=== PATIENT | female | born 1950 | race African-American/Black ===

== ENCOUNTER 2016-03-22 08:35 | Day surgery (SDC) | payer MEDICARE, OTHER ==
[2016-03-15 11:59] LABS: BASOPHILS 0.2 %; BASOPHILS ABSOLUTE 0.01 10/3/uL (0.0-0.16); EOSINOPHILS 1.5 %; EOSINOPHILS ABSOLUTE 0.08 10/3/uL (0.0-0.53); HEMATOCRIT 40.5 % (36.0-48.0); HEMOGLOBIN 12.2 g/dL (12.0-16.0); IMMATURE GRANULOCYTES 0.2 %; IMMATURE GRANULOCYTES ABSOLUTE 0.01 10/3/uL (0.0-0.11); LYMPHOCYTES 27.5 %; LYMPHOCYTES ABSOLUTE 1.47 10/3/uL (0.67-4.30); MEAN CORPUS HGB CONC 30.1 g/dL (32.0-36.0); MEAN CORPUSCULAR HEMOGLOB 25.1 pg (26.0-34.0); MEAN PLATELET VOLUME 11.8 fL (9.2-13.0); MONOCYTES 7.7 %; MONOCYTES ABSOLUTE 0.41 10/3/uL (0.21-1.20); NEUTROPHILS 62.9 %; NEUTROPHILS ABSOLUTE 3.37 10/3/uL (2.02-8.40); PLATELET COUNT 240 10/3/uL (150-400); RBC DISTRIBUTION WIDTH 16.4 % (12.0-16.0); RED CELL COUNT 4.86 10/6/uL (4.0-5.6); WHITE BLOOD CELLS 5.4 10/3/uL (4.5-10.5)
[2016-03-15 12:00] LABS: MANUAL DIFF NO %; MEAN CORPUSCULAR VOLUME 83.3 fL (80-100)
[2016-03-15 12:21] LABS: A/G RATIO 0.9 (0.7-1.9); ALBUMIN 3.6 G/DL (3.5-5.0); BUN (BLOOD UREA NITROGEN) 15 MG/DL (6-23); CALCIUM, SERUM 9.2 MG/DL (8.5-10.4); CHLORIDE, SERUM 95 MMOL/L (96-112); CO2 (CARBON DIOXIDE) 35 MMOL/L (24-34); CREATININE 0.78 MG/DL (0.55-1.02); GFR AFRICAN AMERICAN 91 ML/MIN (>=60); GFR NON AFRICAN AMERICAN 79 ML/MIN (>=60); POTASSIUM, SERUM 3.6 MMOL/L (3.5-5.3); SGOT(AST) 14 U/L (5-40); SGPT(ALT) 14 U/L (5-65); SODIUM, SERUM 139 MMOL/L (135-148); TOTAL BILIRUBIN 0.6 MG/DL (0-1.2); TOTAL PROTEIN 7.6 G/DL (6.0-8.5)
[2016-03-15 12:23] LABS: ALKALINE PHOSPHATASE 132 U/L (45-117); GLUCOSE, SERUM 104 MG/DL (60-99)
--- NOTE | ~2016-03-22 | OP ---
Record Of Operation [facility] [address] [place]. [address] NAME: LUIS TAMEZ : 48 STATUS : REG [facility]#: [id number] AGE: 66 ADM/REG DATE : 03/22/16 MR#: [id number] REPORT SERV DATE: 03/22/16 DICTATED BY: NERIS MONTOYA DATE: 03/22/16 REPORT STATUS : Draft TRANSCRIBED BY: MODGalileo DATE: 03/22/16 DATE OF PROCEDURE: PREOPERATIVE DIAGNOSIS: Locally advanced right breast cancer. POSTOPERATIVE DIAGNOSIS: Locally advanced right breast cancer. PROCEDURE: 1. Placement of a left internal jugular venous port. 2. Intraoperative ultrasound for venous access. 3. Intraoperative fluoroscopy with interpretation. INDICATION FOR THE PROCEDURE: Ms. Tamez is a 66-year-old female who does have some chronic renal insufficiency and hypertension. She was diagnosed with a locally advanced right breast cancer recently and does need neoadjuvant chemotherapy. The patient has met with Dr. Jerome and is planning on starting chemotherapy tomorrow. The patient does need a port placed. OPERATIVE FINDINGS: After appropriate consent was noted on the chart, the patient was taken to the operating room in supine position. She was placed under monitored anesthesia without complication. The ultrasound was placed in the left neck and the internal jugular vein found in its normal anatomic position and patent. The bilateral chest wall and neck were prepped and draped in a sterile fashion. A draped ultrasound probe was then utilized to visualize the left internal jugular vein. The local anesthetic was infiltrated in the skin and soft tissues overlying the vein and the vein was then accessed with a single pass with a Seldinger needle. Nonpulsatile venous appearing blood was noted in the syringe. The syringe was removed and the wire passed with ease. Fluoroscopy noted the wire to be in good position. The wire was secured to the drape for later use and the port pocket anesthetized. An incision was made with a #15 blade and sharp dissection carried down to the level of the fat. The port pocket was created with Bovie cauterization and stay sutures placed at 3 o'clock and 9 o'clock position of Prolene. The sutures were secured for later use. An 11 blade was utilized to lengthen the access site in the neck and the middle tunneling device was utilized to create a new tunnel from the port pocket to the vein access site. The catheter was pulled through without issue. The dilator with tear-away sheath were then placed over the wire and with constant movement of the wire, the vein was dilated. The wire and dilator were removed leaving the sheath in the vein. The catheter was then passed into the sheath and the sheath torn away. Under direct fluoroscopy, the catheter was pulled back to an appropriate level. I did try to keep this catheter somewhat higher than typical, likely closer to the junction of the subclavian vein and the vena cava. This was done as I think the patient is at a high risk for arrhythmias with her renal insufficiency. The connection was secured with the connection device. The port was noted to aspirate and flush with ease. It was packed with heparinized saline. The port was placed into the port pocket with this Prolene sutures. Wound copiously irrigated with warm saline and hemostasis achieved. The incision was closed in two layers of Monocryl. Dermabond was overlaid, followed by Telfa and Tegaderm. Toward the end of the case, the patient did have issues Record Of [address] [address] NAME: LUIS TAMEZ : 48 STATUS : REG [facility] PAT#: [id number] AGE: 66 ADM/REG DATE : 03/22/16 MR#: [id number] REPORT SERV DATE: 03/22/16 DICTATED BY: NERIS MONTOYA. DATE: 03/22/16 REPORT STATUS : Draft TRANSCRIBED BY: SE DATE: 03/22/16 with desaturation on the monitored anesthesia. The SEARCH ENGINE OPTIMIZATION SPECIALIST did have to do some manual compression bagging for the patient and brought the patient's saturations back up to a normal level. Anesthesia took over at that point of the case to ensure that the patient had a safe awakening. All counts were correct at the end of the case. ESTIMATED BLOOD LOSS: 10 mL. COMPLICATIONS: Respiratory in nature per anesthesia. The patient will recover in the recovery area and have a portable chest x-ray to ensure good positioning of the catheter and no pneumo or hemothorax. LAYLA/SE Neris Montoya MD / [id number] CC: MD Roxane Jefferson M.D. Bertrand Marquess Anz III, M.D. [facility]
[~2016-03-22 08:35] MED LIST: ASAB PO; BETIMOL0.5 % OP; CIMETIDINE400 MG PO; IBU-200200 MG PO; KLOR-CON-2525 MEQ PO; LOP100 PO; NORCO1 TA1 PO; NORV5 PO; SYN075 PO; TAGAMET 200 MG200 MG PO; ULTRAM50 PO; V5 PO; ZESTORETIC PO; ZESTORETIC1 TA1 PO
[2016-04-06] MEDS ORDERED: ZOFRAN8 PO (16:40)
[2016-04-06] MEDS ORDERED: T PO (16:47)
[2016-04-06] MEDS ORDERED: SMZ TMP PO (16:48)
== END 2016-03-22 15:02 | disposition home or self-care (01) ==
LOC: SDC 08:35
PROVIDERS: Surgery Surgical Oncology
PROC: B514ZZA Fluoroscopy of Left Jugular Veins, Guidance (ICD-10-PCS; 2016-03-22)
PROC: B544ZZA Ultrasonography of Left Jugular Veins, Guidance (ICD-10-PCS; 2016-03-22)
PROC: 05HN33Z Insertion of Infusion Device into Left Internal Jugular Vein, Percutaneous Approach (ICD-10-PCS; principal; 2016-03-22 10:30)
DX: C50.911 Malignant neoplasm of unspecified site of right female breast (principal); I10 Essential (primary) hypertension; E03.9 Hypothyroidism, unspecified; G47.33 Obstructive sleep apnea (adult) (pediatric); Z91.19 Patient's noncompliance with other medical treatment and regimen; Z79.899 Other long term (current) drug therapy; Z98.890 Other specified postprocedural states
CPT/HCPCS: 71010; 71020; 76000; 77001; 80053; 85025; 93005; 94660; C1751; J0690; J2250; J2405; J3010

== ENCOUNTER 2016-04-07 10:35 | Day surgery (SDC) | payer MEDICARE, OTHER ==
--- NOTE | ~2016-04-07 | OP ---
Record Of Operation [facility] [address] [place] [address] NAME: LUIS WASHINGTON : 48 STATUS : REG [facility]#: [id number] AGE: 66 ADM/REG DATE : 04/07/16 MR#: [id number] REPORT SERV DATE: 04/07/16 DICTATED BY: ALFREDO LOPEZ DATE: 04/07/16 REPORT STATUS : Draft TRANSCRIBED BY: MODL DATE: 04/07/16 DATE OF PROCEDURE: 04/07/2016 PREOPERATIVE DIAGNOSIS: Abscess, right leg. POSTOPERATIVE DIAGNOSIS: Abscess, right leg. OPERATION: I and D, right leg abscess. SUMMARY: After adequate MAC anesthesia, prepped and draped, 1% Xylocaine was used to anesthetized the area directly around the abscess. An elliptical incision was made of the abscess scarred down area. Cultures were taken. Hemostasis was obtained using cautery unit. A second abscess cavity superior to this and medial approximately a 1 cm was also injected with 1%, and a small elliptical incision was made of this, and this was also cultured. Pressure dressing was applied after good hemostasis was obtained, and the area was packed with iodoform gauze. The patient tolerated procedure well and taken to the recovery room in satisfactory condition. BRENDA/SE Alfredo Lopez M.D. / [id number] CC: Elizabeth Mcghee M.D.
[~2016-04-07 10:35] MED LIST changes: +SMZ TMP PO; +T PO; +ZOFRAN8 PO
[2016-04-07 11:35] LABS: BASOPHILS 0.2 %; BASOPHILS ABSOLUTE 0.02 10/3/uL (0.0-0.16); EOSINOPHILS 0.1 %; EOSINOPHILS ABSOLUTE 0.01 10/3/uL (0.0-0.53); HEMATOCRIT 39.3 % (36.0-48.0); IMMATURE GRANULOCYTES 3.3 %; IMMATURE GRANULOCYTES ABSOLUTE 0.31 10/3/uL (0.0-0.11); LYMPHOCYTES 16.2 %; LYMPHOCYTES ABSOLUTE 1.54 10/3/uL (0.67-4.30); MANUAL DIFF NO %; MEAN CORPUS HGB CONC 30.5 g/dL (32.0-36.0); MEAN CORPUSCULAR HEMOGLOB 25.7 pg (26.0-34.0); MEAN CORPUSCULAR VOLUME 84.2 fL (80-100); MEAN PLATELET VOLUME 11.8 fL (9.2-13.0); MONOCYTES 8.1 %; MONOCYTES ABSOLUTE 0.77 10/3/uL (0.21-1.20); NEUTROPHILS 72.1 %; NEUTROPHILS ABSOLUTE 6.83 10/3/uL (2.02-8.40); PLATELET COUNT 463 10/3/uL (150-400); RBC DISTRIBUTION WIDTH 15.7 % (12.0-16.0); RED CELL COUNT 4.67 10/6/uL (4.0-5.6); WHITE BLOOD CELLS 9.5 10/3/uL (4.5-10.5)
[2016-04-07 11:44] LABS: BUN (BLOOD UREA NITROGEN) 12 MG/DL (6-23); CALCIUM, SERUM 8.9 MG/DL (8.5-10.4); CHLORIDE, SERUM 101 MMOL/L (96-112); CO2 (CARBON DIOXIDE) 35 MMOL/L (24-34); CREATININE 0.99 MG/DL (0.55-1.02); GFR AFRICAN AMERICAN 68 ML/MIN (>=60); GFR NON AFRICAN AMERICAN 59 ML/MIN (>=60); GLUCOSE, SERUM 93 MG/DL (60-99); SODIUM, SERUM 141 MMOL/L (135-148)
[2016-04-07 11:45] LABS: POTASSIUM, SERUM 3.9 MMOL/L (3.5-5.3)
== END 2016-04-07 17:52 | disposition home or self-care (01) ==
LOC: SDC 10:35
PROVIDERS: Specialist
PROC: 0H9HXZZ Drainage of Right Upper Leg Skin, External Approach (ICD-10-PCS; principal; 2016-04-07 11:45)
DX: L02.415 Cutaneous abscess of right lower limb (principal); I10 Essential (primary) hypertension; J44.9 Chronic obstructive pulmonary disease, unspecified; I44.7 Left bundle-branch block, unspecified; Z87.891 Personal history of nicotine dependence; Z87.442 Personal history of urinary calculi; Z90.710 Acquired absence of both cervix and uterus; Z98.890 Other specified postprocedural states
CPT/HCPCS: 80048; 85025; 87070; 87075; 87077; 87186; 87205; 88304; J0690; J2250; J3010